=== PATIENT | male | born 1985 | race Caucasian/White ===

== ENCOUNTER 2017-09-02 08:15 | Emergency (ER) | payer SELFPAY ==
[~2017-09-02] VITALS: Ht 167.6 cm; Wt 56.4 kg
[2017-09-02 08:17] VITALS: BP 133/80
[2017-09-02] MEDS ORDERED: HYDROcodone/APAP 5/325 TABLET ONE (09:06)
[2017-09-02] MEDS ORDERED: HYDROcodone/APAP 5/325 TABLET PO ONE (09:30)
== END 2017-09-02 09:41 | disposition home or self-care (01) ==
LOC: ED 09:40
DX: H66.91 Otitis media, unspecified, right ear (principal)
CPT/HCPCS: 99283

== ENCOUNTER 2019-01-17 00:31 | Emergency (ER) | payer MEDICAID, OTHER ==
[~2019-01-17] VITALS: Ht 167.6 cm; Wt 57.5 kg
[2019-01-17 00:38] VITALS: BP 120/70
== END 2019-01-17 02:05 | disposition home or self-care (01) ==
LOC: ED 02:03
DX: M25.531 Pain in right wrist (principal); F17.200 Nicotine dependence, unspecified, uncomplicated
CPT/HCPCS: 29125; 99283